=== PATIENT | male | born 1960 | race Caucasian/White ===

== ENCOUNTER 2024-02-26 06:32 | Day surgery (SDC) | payer OTHER ==
[~2024-02-26] VITALS: Ht 185.4 cm; Wt 130.2 kg
[2024-02-26] MEDS ORDERED: HYDROGEN PEROXIDE 3% 240 ML BTL TP ONE (07:29)
[2024-02-26 07:42] LABS: BASOPHILS # (AUTO) 0.1 K/uL (0.00-0.22); BASOPHILS % (AUTO) 0.8 % (0.0-2.0); EOSINOPHILS # (AUTO) 0.2 K/uL (0-0.4); EOSINOPHILS % (AUTO) 1.7 % (0.0-4.0); HEMATOCRIT 44.7 % (36-52); HEMOGLOBIN 14.6 g/dL (12.0-18.0); LYMPHOCYTES % (AUTO) 22.1 % (20.5-51.1); MEAN CORPUSCULAR HEMOGLOBIN 27 pg (27-31); MEAN CORPUSCULAR HGB CONC 33 g/dL (33-37); MEAN CORPUSCULAR VOLUME 81.9 fL (80-94); MONOCYTES # (AUTO) 0.8 K/uL (0.8-1.0); MONOCYTES % (AUTO) 8.9 % (1.7-9.3); NEUTROPHILS # (AUTO) 6.1 K/uL (1.8-7.7); NEUTROPHILS % (AUTO) 66.5 % (42.2-75.2); PLATELET COUNT (AUTO) 138 K/uL (140-450); RED BLOOD CELL COUNT(AUTO) 5.46 MIL/uL (4.20-6.10); RED CELL DISTRIBUTION WIDTH 15.7 % (11.6-13.7); WHITE BLOOD COUNT (AUTO) 9.1 K/uL (4.8-10.8)
[2024-02-26 08:03] LABS: ANION GAP 9.5 (8-16); CALCIUM 8.8 mg/dL (8.5-10.1); CARBON DIOXIDE 29.9 mmol/L (21-32); POTASSIUM 4.4 mmol/L (3.5-5.1)
[2024-02-26] MEDS ORDERED: PROPOFOL 200 MG/20 ML VIAL IV ONE ×2 (08:39→09:02)
[2024-02-26] MEDS: BUPIVACAINE-MPF 0.25% 30 ML VIAL INJ ONE (08:52)
[2024-02-26] MEDS: LIDOCAINE/EPI 1% 1:100000 20 ML VIAL INJ ONE (08:52)
[2024-02-26] MEDS ORDERED: HYDROmorphone PFS 2 MG/ML SYR ONE (09:34)
[2024-02-26] MEDS: HYDROmorphone 1 MG/ML AMP IVP PRN (09:35)
== END 2024-02-26 12:30 | disposition home or self-care (01) ==
LOC: MDS 06:32 → MMU 06:45 → MDS 12:30
PROVIDERS: ATTEND Surgery
DX: K60.30 Anal fistula, unspecified (principal); E78.00 Pure hypercholesterolemia, unspecified
CPT/HCPCS: 36415; 46020; 46275; 71045; 80048; 85025; 93005; J1171; J2001; J2704; J3490; Q0092